=== PATIENT | female | born 1995 | race African-American/Black ===

== ENCOUNTER 2016-12-18 13:20 | Emergency (ER) | payer OTHER ==
[2016-12-21 15:37] LABS: CHLAMYDIA TRACH Not Detected (Not Detected); N GONOR Not Detected (Not Detected)
== END 2016-12-18 14:01 | disposition home or self-care (01) ==
LOC: SED 13:20
PROVIDERS: Nurse Practitioner Family
DX: Z20.2 Contact with and (suspected) exposure to infections with a predominantly sexual mode of transmission (principal)
CPT/HCPCS: 87491; 87591; 99282; J0696